=== PATIENT | female | born 1965 | race Caucasian/White ===

== ENCOUNTER 2017-10-22 23:20 | Emergency (ER) | payer OTHER ==
[2017-10-22] MEDS ORDERED: NALOXONE HCL INJ/PF 0.4 MG/1 ML SDV IV ONE (23:49)
[2017-10-22] MEDS ORDERED: NORMAL SALINE 1000 ML 1,000 ML IV ONE (23:49)
--- NOTE | 2017-10-22 23:55 | ER Document Report ---
ED General - General Chief Complaint: Possible Overdose Stated Complaint: POSSIBLE OVERDOSE Time Seen by Provider: 10/22/17 23:37 Mode of Arrival: Medic Information source: Patient, Relative, Emergency Med Personnel Cannot obtain history due to: Altered mental status Notes: 52-year-old female with hypertension, depression presents via EMS from home after patient's found her altered, covered in feces just prior to arrival. is at the bedside and provides the majority of the history. He states that this morning they made the decision to separate and the patient became very upset. He states that she began drinking approximately 6 hours prior to arrival. He reports heavy alcohol use. Patient is a daily drinker. reports that patient started saying that she does not want to live. She went to bed around 9 PM. Patient denies intentional overdose. She states that she thought she was only taking 1 trazodone. TRAVEL OUTSIDE OF THE [place] IN LAST 30 DAYS: No - HPI Onset: Just prior to arrival Quality of pain: Achy Severity: Mild Associated symptoms: None Exacerbated by: Denies Relieved by: Denies Similar symptoms previously: No Recently seen / treated by doctor: No - Related Data Allergies/Adverse Reactions: No Known Allergies Allergy (Unverified 10/22/17 23:46) Past Medical History - General Information source: Patient, Parent - Social History Smoking Status: Current Every Day Smoker Cigarette use (# per day): Yes - 3 Smoking Education Provided: Yes Frequency of alcohol use: Heavy Drug Abuse: None Lives with: Family Family History: Reviewed & Not Pertinent Patient has suicidal ideation: No - patient denies endorses Patient has homicidal ideation: No - Past Medical History Cardiac Medical History: Reports: Hx Hypertension Psychiatric Medical History: Reports: Hx Anxiety, Hx Depression Review of Systems - Review of Systems -: Yes ROS unobtainable due to patient's medical condition Physical Exam - Vital signs Vitals: Resp BP Pulse Ox 18 82/41 L 96 10/22/17 23:35 10/22/17 23:35 10/22/17 23:35 - Notes Notes: PHYSICAL EXAMINATION: GENERAL: Somnolent, arousable with verbal stimuli. GCS 14. HEAD: Ecchymosis of the chin, no cephalohematoma. Midface stable. EYES: Pupils 3-2mm equal round and reactive to light, extraocular movements intact, conjunctiva are normal. ENT: Nares patent, oropharynx clear without exudates. Dry mucous membranes. NECK: Normal range of motion, supple without lymphadenopathy LUNGS: Breath sounds clear to auscultation bilaterally and equal. No wheezes rales or rhonchi. HEART: Tachycardic with regular rhythm without murmurs ABDOMEN: Tender to palpation in the left upper quadrant with associated bruising.. No guarding, no rebound. No masses appreciated. Female : deferred Musculoskeletal: Normal range of motion, no pitting or edema. No cyanosis. NEUROLOGICAL: Cranial nerves grossly intact. slurred speech. Normal sensory, motor exams PSYCH: Altered. Denies SI, HI, visual and auditory hallucinations. SKIN: Warm, Dry, normal turgor, no rashes or lesions noted. Course - Re-evaluation Re-evalutation: Laboratory 10/22/17 10/22/17 10/22/17 23:15 23:15 23:36 WBC 7.2 RBC 3.78 Hgb 12.4 Hct 37.2 MCV 99 H MCH 32.9 MCHC 33.4 RDW 13.8 Plt Count 225 Seg Neutrophils % 65.7 Lymphocytes % 26.8 Monocytes % 5.3 Eosinophils % 1.8 Basophils % 0.4 Absolute Neutrophils 4.7 Absolute Lymphocytes 1.9 Absolute Monocytes 0.4 Absolute Eosinophils 0.1 Absolute Basophils 0.0 Sodium Potassium Chloride Carbon Dioxide Anion Gap BUN Creatinine Est GFR ( Amer) Est GFR (Non-Af Amer) Glucose Calcium Total Bilirubin Direct Bilirubin Neonat Total Bilirubin Neonat Direct Bilirubin Neonat Indirect Bili AST ALT Alkaline Phosphatase Total Protein Albumin Urine Color YELLOW Urine Appearance CLEAR Urine pH 7.0 Ur Specific [place] 1.008 Urine Protein NEGATIVE Urine Glucose (UA) NEGATIVE Urine Ketones NEGATIVE Urine Blood NEGATIVE Urine Nitrite NEGATIVE Urine Bilirubin NEGATIVE Urine Urobilinogen NEGATIVE Ur Leukocyte Esterase NEGATIVE Squamous Epi Cells Auto <1 Urine Mucus (Auto) RARE Urine Ascorbic Acid NEGATIVE Urine HCG, Qual NEGATIVE Salicylates Urine Opiates Screen NEGATIVE Urine Methadone Screen NEGATIVE Acetaminophen Ur Barbiturates Screen NEGATIVE Ur Phencyclidine Scrn NEGATIVE Ur Amphetamines Screen NEGATIVE U Benzodiazepines Scrn NEGATIVE Urine Cocaine Screen NEGATIVE U Marijuana (THC) Screen NEGATIVE 10/22/17 23:36 WBC RBC Hgb Hct MCV MCH MCHC RDW Plt Count Seg Neutrophils % Lymphocytes % Monocytes % Eosinophils % Basophils % Absolute Neutrophils Absolute Lymphocytes Absolute Monocytes Absolute Eosinophils Absolute Basophils Sodium 148.1 H Potassium 3.3 L Chloride 108 H Carbon Dioxide 23 Anion Gap 17 BUN 12 Creatinine 1.20 Est GFR ( Amer) 57 L Est GFR (Non-Af Amer) 47 L Glucose 150 H Calcium 9.5 Total Bilirubin < 0.1 L Direct Bilirubin 0.0 Neonat Total Bilirubin Not Reportable Neonat Direct Bilirubin Not Reportable Neonat Indirect Bili Not Reportable AST 193 H ALT 153 H Alkaline Phosphatase 80 Total Protein 6.6 Albumin 3.9 Urine Color Urine Appearance Urine pH Ur Specific [place] Urine Protein Urine Glucose (UA) Urine Ketones Urine Blood Urine Nitrite Urine Bilirubin Urine Urobilinogen Ur Leukocyte Esterase Squamous Epi Cells Auto Urine Mucus (Auto) Urine Ascorbic Acid Urine HCG, Qual Salicylates < 1.0 L Urine Opiates Screen Urine Methadone Screen Acetaminophen < 10 L Ur Barbiturates Screen Ur Phencyclidine Scrn Ur Amphetamines Screen U Benzodiazepines Scrn Urine Cocaine Screen U Marijuana (THC) Screen 10/23/17 00:24 Spoke to poison control who advises 8 hours of observation, serial EKGs to assess for QTc prolongation, avoidance of QTc prolonging medications. 10/23/17 02:06 Repeat EKG shows improvement of QTC which is now 487 down from 522. 10/23/17 02:07 Patient remains somnolent but arousable with verbal stimuli. Patient has an improvement of her blood pressure and currently has a blood pressure of 109/63. IVC petition initiated. Psych consult ordered. 10/23/17 04:47 Patient's third EKG shows the patient to be and sinus tachycardia. QTC is 497, QRS is 80. Patient remains somnolent but arousable. Patient will be cleared for psychiatric evaluation when she has been observed for 8 hours and becomes alert, awake. 10/23/17 05:08 52-year-old female with hypertension, depression presents via EMS from home after patient's found her altered, covered in feces just prior to arrival. is at the bedside and provides the majority of the history. He states that this morning they made the decision to separate and the patient became very upset. He states that she began drinking approximately 6 hours prior to arrival. He reports heavy alcohol use. Patient is a daily drinker. reports that patient started saying that she does not want to live. She went to bed around 9 PM reports hearing the patient moving around upstairs and when he went to check on her she was significantly altered. Patient denies intentional overdose. She states that she thought she was only taking 1 trazodone. Upon arrival patient is tachycardic, mildly hypotensive. Hypotension responded to IV fluids and the patient has sustained a pelvic blood pressure of over 100. Patient was reevaluated multiple times. She remains somnolent but she is easily arousable. CBC is without leukocytosis or anemia. CMP does show mildly elevated sodium, potassium of 3.3. Patient should be supplemented orally when awake and alert. Urinalysis is without evidence of infection. Patient has mildly elevated liver enzymes. This is likely secondary to heavy alcohol use. EtOH is 196. HCG and urine drug screen negative. Poison control recommends 8 hours of observation, serial EKGs. Patient should be medically cleared by 8 AM if she is alert, awake and oriented. 10/23/17 05:12 - Vital Signs Vital signs: Temp Pulse Resp BP Pulse Ox 95 17 101/66 96 10/22/17 23:41 10/23/17 05:01 10/23/17 05:00 10/23/17 05:01 - Laboratory Result Diagrams: 10/22/17 23:36 10/22/17 23:36 Laboratory results interpreted by me: 10/22/17 10/22/17 23:36 23:36 MCV 99 H Sodium 148.1 H Potassium 3.3 L Chloride 108 H Est GFR ( Amer) 57 L Est GFR (Non-Af Amer) 47 L Glucose 150 H Total Bilirubin < 0.1 L AST 193 H ALT 153 H Salicylates < 1.0 L Acetaminophen < 10 L - Diagnostic Test Radiology reviewed: Image reviewed, Reports reviewed - EKG Interpretation by [facility] EKG shows normal: Sinus rhythm Rate: Normal Rhythm: NSR Additional EKG results interpreted by [facility]: 10/23/17 02:09 Prolonged QTC of 522. Repeat EKG now shows sinus tachycardia at a rate of 103 with a QTC of 487. Discharge - Discharge Clinical Impression: Alcohol abuse, Suicidal ideation, Tachycardia Medication overdose Qualifiers: Encounter type: initial encounter Injury intent: undetermined intent Qualified Code(s): T50.904A - Poisoning by unspecified drugs, medicaments and biological substances, undetermined, initial encounter Condition: Fair
[2017-10-23 00:10] LABS: ABSOLUTE EOSINOPHILS # (AUTO) 0.1 10^3/uL (0.0-0.6); ABSOLUTE LYMPHOCYTES (AUTO) 1.9 10^3/uL (0.5-4.7); ABSOLUTE MONOCYTES (AUTO) 0.4 10^3/uL (0.1-1.4); ABSOLUTE NEUT (AUTO) 4.7 10^3/uL (1.7-8.2); BASOPHILS % (AUTO) 0.4 % (0-2); EOSINOPHILS % (AUTO) 1.8 % (0-6); HEMATOCRIT 37.2 % (36.0-47.0); HEMOGLOBIN 12.4 g/dL (12.0-15.5); LYMPHOCYTES % (AUTO) 26.8 % (13-45); MEAN CORPUSCULAR HEMOGLOBIN 32.9 pg (27.0-33.4); MEAN CORPUSCULAR HGB CONC 33.4 g/dL (32.0-36.0); MEAN CORPUSCULAR VOLUME 99 fl (80-97); MONOCYTES % (AUTO) 5.3 % (3-13); PLATELET COUNT 225 10^3/uL (150-450); RED BLOOD COUNT 3.78 10^6/uL (3.72-5.28); RED CELL DISTRIBUTION WIDTH 13.8 % (11.5-14.0); SEGMENTED NEUTROPHILS % (AUTO) 65.7 % (42-78); TOTAL CELLS COUNTED % (AUTO) 100 %; WHITE BLOOD COUNT 7.2 10^3/uL (4.0-10.5)
[2017-10-23 00:46] LABS: ALANINE AMINOTRANSFERASE 153 U/L (9-52); ALBUMIN 3.9 g/dL (3.5-5.0); ALKALINE PHOSPHATASE 80 U/L (38-126); ANION GAP 17 (5-19); ASPARTATE AMINO TRANSFERASE 193 U/L (14-36); BLOOD UREA NITROGEN 12 mg/dL (7-20); CALCIUM 9.5 mg/dL (8.4-10.2); CARBON DIOXIDE 23 mmol/L (22-30); CHLORIDE 108 mmol/L (98-107); GLUCOSE 150 mg/dL (75-110); POTASSIUM 3.3 mmol/L (3.6-5.0); SODIUM 148.1 mmol/L (137-145); TOTAL PROTEIN 6.6 g/dL (6.3-8.2)
[2017-10-23 00:51] LABS: ACETAMINOPHEN < 10 ug/mL (10-30); BILIRUBIN,TOTAL < 0.1 mg/dL (0.2-1.3); SALICYLATE < 1.0 mg/dL (2.0-20.0)
[2017-10-23 00:51] LABS: URINE AMPHETAMINES SCREEN NEGATIVE; URINE BARBITURATES SCREEN NEGATIVE; URINE BENZODIAZEPINES SCREEN NEGATIVE; URINE COCAINE SCREEN NEGATIVE; URINE MARIJUANA (THC) SCREEN NEGATIVE; URINE METHADONE SCREEN NEGATIVE; URINE PHENCYCLIDINE SCREEN NEGATIVE
--- NOTE | 2017-10-23 00:54 | RADIOLOGY REPORT (SQ) ---
EXAM DESCRIPTION: CT HEAD WITHOUT IV CONTRAST CLINICAL HISTORY: 52 years Female, ams COMPARISON: None. TECHNIQUE: No contrast. Coronal and sagittal reformat. This exam was performed according to our departmental dose-optimization program, which includes automated exposure control, adjustment of the mA and/or kV according to patient size and/or use of iterative reconstruction technique. FINDINGS: No hemorrhage or infarct. No mass, mass effect, or midline shift. Brain and extra-axial structures appear intact. IMPRESSION: Normal CT of the head.
[2017-10-23 01:04] LABS: APPEARANCE,URINE CLEAR; BILIRUBIN,URINE NEGATIVE (NEGATIVE); COLOR,URINE YELLOW; GLUCOSE, URINE NEGATIVE (NEGATIVE)
[2017-10-23 01:05] LABS: KETONES,URINE NEGATIVE (NEGATIVE); LEUKOCYTE ESTERASE,URINE NEGATIVE (NEGATIVE); NITRITE,URINE NEGATIVE (NEGATIVE); PROTEIN,URINE NEGATIVE (NEGATIVE); URINE SPECIFIC GRAVITY 1.008; UROBILINOGEN,URINE NEGATIVE mg/dL (<2.0)
[2017-10-23] MEDS ORDERED: POTASSIUM CHLORIDE 10 MEQ TABLET.SA PO ONE (09:56)
--- NOTE | 2017-10-23 10:32 | ER Document Report ---
Doctor's Note Notes: 10/23/17 10:31 Rounds: Chart reviewed and patient interviewed. Lab studies shows alcohol of 191 and potassium of 3.3. Patient was given 40 mEq of potassium p.o. this morning. Patient reportedly is upset over her 's separation from her. Says she was suicidal but does not feel that way at the moment. Vital signs were all normal. Patient appears to be medically stable for transfer or discharge. Magnolia Sanchez MD
--- NOTE | 2017-10-23 10:57 | PSYCHOLOGICAL NOTE ---
Psych Note - Psych Note Psych Note: Reason for consult: Intentional overdose Contact permissions Alfredo Vargas [phone] Eval: [phone] final disposition [phone] Patient is a 52-year-old female. Patient reports she has been to her for 29 years and he stated yesterday that he wants a divorce. Patient reports over the last several years they have been arguing a lot and having marital problems however him wanting a divorce came as a shock to her. Patient reports she felt as if she did not want to live anymore, and stated that she took her prescribed amount of trazodone. After clinician explained the chart review process patient disclosed that she took a handful of trazodone because she felt it was the only option stating "I cannot live without him it seemed that was the only way". Patient reports she also drank wine with the trazodone. Patient reports she has not had any suicidal attempts in the past and has never been to an inpatient psychiatric hospital. Patient reports she saw a therapist off and on over the last several years. Patient reports she has a history of anxiety and depression and used to have panic attack several years ago but has not had one in a while. Patient reports she drinks daily a bottle of wine a day sometimes more, but can have days where she only drinks 3 or 4 glasses. Patient reports yesterday happened so suddenly and she is not sure if she would ever talk to her family or friends about it. Patient denies suicidal and homicidal ideation. Patient reports mental health has consent to speak with her . Patient reports she feels nothing has changed, because she still feels she cannot live without her . Patient stated she will not tell her children, because she does not want them to know what she is going through. Clinician attempted to contact patient's for collateral and was unable to reach him. Per comprehensive chart review Collateral information included below documented by attending physician 52-year-old female with hypertension, depression presents via EMS from home after patient's found her altered, covered in feces just prior to arrival. is at the bedside and provides the majority of the history. He states that this morning they made the decision to separate and the patient became very upset. He states that she began drinking approximately 6 hours prior to arrival. He reports heavy alcohol use. Patient is a daily drinker. reports that patient started saying that she does not want to live. She went to bed around 9 PM. Patient denies intentional overdose. She states that she thought she was only taking 1 trazodone. Medication recommendation made by contracted [facility] provider psychiatric provider Dr. Kamala Md. includes: Continue home medications as follows 1. Paroxetine 40 mg daily 2. Gabapentin 300 mg daily 3. Lisinopril HCTZ 20 mg/12.5 mg daily Diagnosis: 311 ( F32.9) Unspecified Depressive Disorder ( Per history, patient report) V61.10 (Z 63.0) relationship distress with spouse or intimate partner Impression/plan: Recommendation for full involuntary commitment due to patient meeting criteria [place] GS 122C. Patient denied suicidal and homicidal ideation however disclosed she intentionally overdosed on Trazadone because she "did not want to live anymore". Clinician observed patient presents as flat affect, depressed mood, and tearful. Clinician observed patient has marital discord and is currently going through a separation with her who she lives alone with. Mental health to reassess at a later time. Attending physician in agreement with plan and disposition. Consulted with Dr. Rodriguez regarding the management and care of patient.
[2017-10-23] MEDS ORDERED: PAROXETINE HCL 20 MG TABLET PO SCH (11:45)
[2017-10-23] MEDS ORDERED: LISINOPRIL 10 MG TABLET PO SCH (11:45)
[2017-10-23] MEDS ORDERED: HYDROCHLOROTHIAZIDE 12.5 MG CAPSULE PO SCH (11:45)
[2017-10-23] MEDS ORDERED: GABAPENTIN 300 MG CAPSULE PO SCH (11:45)
--- NOTE | 2017-10-24 07:20 | EKG REPORT ---
SEVERITY:- ABNORMAL ECG - SINUS TACHYCARDIA NONSPECIFIC T ABNORMALITIES, ANT-LAT LEADS : Confirmed by: Moses Serrano MD 24-Oct-2017 07:20:16
--- NOTE | 2017-10-24 07:21 | EKG REPORT ---
SEVERITY:- ABNORMAL ECG - SINUS TACHYCARDIA NONSPECIFIC T ABNORMALITIES, ANT-LAT LEADS BORDERLINE PROLONGED QT INTERVAL : Confirmed by: Moses Serrano MD 24-Oct-2017 07:21:19
--- NOTE | 2017-10-24 07:21 | EKG REPORT ---
SEVERITY:- ABNORMAL ECG - SINUS TACHYCARDIA BORDERLINE T ABNORMALITIES, ANTERIOR LEADS BORDERLINE PROLONGED QT INTERVAL : Confirmed by: Moses Serrano MD 24-Oct-2017 07:20:51
--- NOTE | 2017-10-24 07:22 | EKG REPORT ---
SEVERITY:- ABNORMAL ECG - SINUS RHYTHM PROLONGED QT INTERVAL NONSPECIFIC ST-T CHANGES, DIFFUSE : Confirmed by: Moses Serrano MD 24-Oct-2017 07:22:08
--- NOTE | 2017-10-24 08:34 | ER Document Report ---
Doctor's Note Notes: 10/24/17 08:33 As the rounding physician for our psychiatric patients, I have reviewed the chart, vitals, lab work. Patient has been examined and noted to be intoxicated upon arrival, per nursing is now stable in gait . I am awaiting mental health in put. Review of note from yesterday notes IVC criteria was met at that time.
[2017-10-24] MEDS ORDERED: POTASSIUM CHLORIDE 10 MEQ TABLET.SA PO ONE (10:08)
[2017-10-24] MEDS ORDERED: GABAPENTIN 300 MG CAPSULE PO SCH (10:15)
[2017-10-24] MEDS ORDERED: HYDROCHLOROTHIAZIDE 12.5 MG CAPSULE PO SCH (10:15)
[2017-10-24] MEDS ORDERED: LISINOPRIL 10 MG TABLET PO SCH (10:15)
[2017-10-24] MEDS ORDERED: LISINOPRIL 10 MG TABLET PO ONE (11:30)
[2017-10-24] MEDS ORDERED: HYDROCHLOROTHIAZIDE 12.5 MG CAPSULE PO ONE (11:30)
[2017-10-24] MEDS ORDERED: GABAPENTIN 300 MG CAPSULE PO ONE (11:30)
[2017-10-24 14:15] VITALS: BP 132/84
[2017-10-25] MEDS ORDERED: GABAPENTIN 300 MG CAPSULE PO SCH (10:00)
== END 2017-10-24 14:16 ==
LOC: ER 23:20
DX: T43.214A Poisoning by selective serotonin and norepinephrine reuptake inhibitors, undetermined, initial encounter (principal); Y92.009 Unspecified place in unspecified non-institutional (private) residence as the place of occurrence of the external cause; R45.851 Suicidal ideations; F10.10 Alcohol abuse, uncomplicated; Y90.6 Blood alcohol level of 120-199 mg/100 ml; I95.9 Hypotension, unspecified; R00.0 Tachycardia, unspecified; F32.9 Major depressive disorder, single episode, unspecified; R74.8 Abnormal levels of other serum enzymes; R58 Hemorrhage, not elsewhere classified; S30.1XXA Contusion of abdominal wall, initial encounter; R10.812 Left upper quadrant abdominal tenderness; X58.XXXA Exposure to other specified factors, initial encounter; I10 Essential (primary) hypertension; F17.210 Nicotine dependence, cigarettes, uncomplicated; Z63.5 Disruption of family by separation and divorce
CPT/HCPCS: 93005 ×2; 99285; 96361; 96374; 36415; 80307 ×4; 85025; 81025; 80053; 81001; 70450; 93010 ×2; J2310; J7030